=== PATIENT | female | born 1945 | race African-American/Black ===

== ENCOUNTER 2016-12-08 12:43 | Emergency (ER) | payer OTHER ==
[~2016-12-08] VITALS: Ht 162.6 cm; Wt 104.3 kg
[~2016-12-08 12:43] MED LIST: ALPRAZOLAM1 MG PO; ASPIRIN81 M1 PO; FLUOXETINE HCL40 M1 PO; LEVOTHYROXINE0.15 MG PO; LISINOPRIL10 MG PO; METOPROLOL SUCC25 M1 PO; NORVASC 5MG TAB5 MG PO; PANTOPRAZOLE SO40 M1 PO; PERPHENAZINE4 M1 PO; PREDNISONE20 M1 PO; PRILOSEC 20MG C20 MG PO; VISTARIL25 M1 PO; ZOCOR 40MG TAB40 MG PO
[2016-12-08 12:54] VITALS: BP 129/78
--- NOTE | 2016-12-08 13:06 | ED SKIN/ALLERGY COMPLAINT ---
History of Present Illness General Chief Complaint: Allergy Symptoms Stated Complaint: ALLERGIC REACTION? Source: patient, old records Exam Limitations: no limitations Vital Signs & Intake/Output Vital Signs & Intake/Output Vital Signs Date Time Temp Pulse Resp B/P B/P Pulse O2 O2 Flow FiO2 Mean Ox Delivery Rate 12/08 1254 95.9 53 22 129/78 96 Room Air Allergies Coded Allergies: lisinopril (Mild, ITCHING 03/15/16) Penicillins (SWELLING 12/05/15) zinc (UNKNOWN 12/05/15) Reconcile Medications Alprazolam 1 MG TAB 1 TAB PO TID PRN ANXIETY (Reported) Aspirin 81 MG CTB 1 TAB PO DAILY HEART HEALTH (Reported) Fluoxetine HCl 40 MG CAPSULE 1 CAP PO BID MENTAL HEALTH (Reported) Hydroxyzine Pamoate (Vistaril) 25 MG CAPSULE 1 CAP PO TID PRN ITCHING Levothyroxine Sodium 0.15 MG TAB 0.15 MG PO DAILY AC THYROID (Reported) Metoprolol Succinate 25 MG TAB.ER.24H 1 TAB PO DAILY HEART (Reported) Pantoprazole Sodium 40 MG TABLET.DR 1 TAB PO DAILY PRN GI (Reported) Perphenazine 4 MG TABLET 1 TAB PO DAILY PRN MENTAL HEALTH (Reported) Prednisone 10 MG TABLET 1 TAB PO DAILY ALLERGIC REACTION TAKE 4 TABS FOR 3 DAYS THEN TAKE 3 TABS FOR 3 DAYS THEN TAKE 2 TABS FOR 3 DAYS THEN TAKE 1 TAB FOR 3 DAYS Simvastatin (Zocor 40MG Tab) 40 MG TAB 1 TAB PO QPM CHOLESTEROL (Reported) Triage Note: C/O ITCHING ALL OVER WITH TINGLING, NUMBNESS TO LIPS, TONGUE SWELLING X 3 DAYS. WORSE TODAY. Triage Nurses Notes Reviewed? yes HPI: Patient presents with diffuse body itching since Tuesday. Patient also states that it feels like her tongue was swollen even though she knows that it's not. There is no difficulty breathing or swallowing. There are no fevers or chills. Patient denies any new medications, foods or detergents. Patient states that she had similar symptoms in the past when she was on lisinopril but she does not take any KRISTIAN inhibitor's. The symptoms have been constant since Tuesday. The patient states that they are not getting any worse but they're not getting any better either. Patient called her primary care physician and was instructed to come into the emergency department. Past History Travel History Traveled to [place] past 21 day No Medical History Any Pertinent Medical History? see below for history Neurological: TIA EENT: NONE Cardiovascular: CAD, hypertension, hyperlipidemia Respiratory: NONE Gastrointestinal: NONE Hepatic: NONE Renal: NONE Musculoskeletal: NONE Psychiatric: anxiety, depression Endocrine: hypothyroidism Blood Disorders: NONE Cancer(s): NONE MAINTENANCE MECHANIC ELEVATORS/Reproductive: NONE Surgical History Surgical History: non-contributory Psychosocial History Who do you live with Sister Services at Home None What is your primary language Brazilian Tobacco Use: Current Daily Use Daily Tobacco Use Amount/Type: => 5 Cigarettes daily ETOH Use: denies use Family History Family History, If Any: BROTHER Diabetes mellitus (DM) Hx Contributory? No Review of Systems Review of Systems Constitutional: Reports: no symptoms. EENTM: Reports: no symptoms. Respiratory: Reports: no symptoms. Cardiovascular: Reports: no symptoms. GI: Reports: no symptoms. Genitourinary: Reports: no symptoms. Musculoskeletal: Reports: no symptoms. Skin: Reports: see HPI. Neurological/Psychological: Reports: no symptoms. Hematologic/Endocrine: Reports: no symptoms. Immunologic/Allergic: Reports: no symptoms. All Other Systems: Reviewed and Negative Physical Exam Physical Exam General Appearance: well developed/nourished, mild distress Head: atraumatic Eyes: Bilateral: PERRL, EOMI. Ears, Nose, Throat: normal pharynx, normal ENT inspection, hearing grossly normal Neck: normal inspection, supple, NO STRIDOR Respiratory: normal breath sounds, no respiratory distress, lungs clear Cardiovascular: regular rate/rhythm, normal peripheral pulses Gastrointestinal: soft, non-tender Back: normal inspection Extremities: normal inspection, normal range of motion, no edema Neurologic/Psych: awake, alert, oriented x 3, normal mood/affect Skin: NO RASH, NO SIGNS OF BED BUGS OR SCABIES Lymphatic: no anterior cervical [place] Progress Differential Diagnosis: allergic reaction, anaphylaxis, contact dermatitis, drug reaction, erythema multiforme, piyriasis rosea Plan of Care: Current Medications Sig/Stephenie Start time Last Medication Dose Stop Time Status Admin Hydroxyzine HCl 25 MG ONCE ONE 12/08 1314 AC (Atarax) 12/09 1315 Prednisone 60 MG ONCE ONE 12/08 1314 AC 12/09 1315 Departure Departure Disposition: HOME OR SELF CARE Condition: Stable Clinical Impression Primary Impression: Allergic reaction Referrals: SHAYY CURRY MD (PCP/Family) Additional Instructions: RETURN FOR ANY CONCERNS Departure Forms: Customer Survey General Discharge Information Prescriptions: Current Visit Scripts Prednisone 1 TAB PO DAILY #30 TAB TAKE 4 TABS FOR 3 DAYS THEN TAKE 3 TABS FOR 3 DAYS THEN TAKE 2 TABS FOR 3 DAYS THEN TAKE 1 TAB FOR 3 DAYS Hydroxyzine Pamoate (Vistaril) 1 CAP PO TID PRN ITCHING #30 CAP
[2016-12-08] MEDS ORDERED: VISTARIL25 M1 PO (13:13)
[2016-12-08] MEDS ORDERED: PREDNISONE10 M2 PO (13:13)
== END 2016-12-08 14:03 ==
LOC: ERH 12:43
DX: T78.40XA Allergy, unspecified, initial encounter (principal)

== ENCOUNTER → 2018-02-24 | Day surgery (SDC) | payer OTHER ==
[~2018-02-24] VITALS: Ht 165.1 cm; Wt 104.8 kg
[~2018-02-24] MED LIST changes: +AMLODIPINE BESY10 M1 PO; +ASPIRIN EC81 M1 PO; -ASPIRIN81 M1 PO; +BUSPIRONE HCL10 M1 PO; +LEVOTHYROXINE150 MCG PO; +PREDNISONE10 M2 PO
--- NOTE | 2018-02-24 11:50 | ULTRASOUND CBW REPORT ---
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 Atypical ductal hyperplasia right breast 9:00, 5 cm from the nipple. Invasive ductal carcinoma right breast 12:00, 4 cm from the nipple. COMPARISON: Ultrasound guided biopsy and post procedure mammogram dated 01/17/2018 and other older mammograms. TECHNIQUE NEEDLE LOC: Proper informed consent is obtained from the patient after discussion of the procedure, potential risks and complications, and alternatives including declining the procedure today. Patient was given an opportunity for questions. The patient appeared to understand. The patient consented to the procedure and signed the consent form. Left breast ductal carcinoma in situ at 10:00 subareolar location: GUIDANCE: Ultrasound APPROACH: Lateral TARGET: Biopsy clip in the subareolar left breast 10:00 position. ANESTHESIA: 7 mL Xylocaine 2% LOCALIZATION MARKER: Kopans 5 cm needle localization system The skin was prepped and local anesthesia administered. The needle was positioned and position assessed with mammography. The wire was hooked into position. The patient tolerated the procedure well and had no immediate complication. Diagram was marked for the surgeon. The target is located around the distal thick thin junction of the wire, 5 cm deep to the skin with 9 cm of the wire remaining external to the skin. Right breast invasive ductal carcinoma at 12:00, 4 cm from the nipple: GUIDANCE: Ultrasound APPROACH: Lateral TARGET: Large solid hypoechoic mass with microlobulated margins, measuring approximately 3.4 x 2.3 x 2.8 cm. ANESTHESIA: 7 mL Xylocaine 2% LOCALIZATION MARKER: Kopans 5 cm needle localization system The skin was prepped and local anesthesia administered. The needle was positioned and position assessed with mammography. The wire was hooked into position. The patient tolerated the procedure well and had no immediate complication. Diagram was marked for the surgeon. The target is located around the thick segment of the wire, 2 cm deep to the skin with 8.5 cm of the wire remaining external to the skin. Right breast atypical ductal hyperplasia at 9:00, 5 cm from the nipple: GUIDANCE: Ultrasound APPROACH: Lateral TARGET: 0.4 x 0.4 x 0.5 cm irregularly marginated hypoechoic mass in the right breast 9:00, 5 cm from the nipple ANESTHESIA: 6 mL Xylocaine 2% LOCALIZATION MARKER: Kopans 5 cm needle localization system The skin was prepped and local anesthesia administered. The needle was positioned and position assessed with mammography. The wire was hooked into position. The patient tolerated the procedure well and had no immediate complication. Diagram was marked for the surgeon. The target is located around the proximal thick thin junction of the wire, 2 cm deep to the skin with 10.5 cm of the wire remaining external to the skin. IMPRESSION: Status post bilateral breast needle localization with wire hooked into position. The left breast DCIS at 10:00 subareolar location is located around the distal thick thin junction of the wire, 5 cm deep to the skin with 9 cm of the wire remaining external to the skin. The right breast invasive ductal carcinoma 12:00 is located around the thick segment of the wire, 2 cm deep to the skin with 8.5 cm of the wire remaining external to the skin. The right breast atypical ductal hyperplasia at 9:00 is located around the proximal thick thin junction of the wire, 2 cm deep to the skin with 10.5 cm of the wire remaining external to the skin.
--- NOTE | 2018-02-24 14:58 | Operative Report ---
Operative/Inv Procedure Report Surgery Date: 02/24/18 Name of Procedure: Left lumpectomy with wire localization, right lumpectomy with wire localization, right sentinel lymph node biopsy, right breast biopsy Pre-Operative Diagnosis: Bilateral breast cancer, right-sided atypical ductal hyperplasia Post-Operative Diagnosis: Same Estimated Blood Loss: 50ml to 100ml Surgeon/Snow Removal/Plowing: Trista Washington MD Anesthesia: laryngeal mask airway Specimens: Left lumpectomy, cranial margin, caudal margin, medial margin, lateral margin, deep margin right lumpectomy, cranial margin, caudal margin, medial margin, lateral margin, deep margin,right breast biopsy, caudal margin ,sentinel lymph node Operative/Procedure Note Note: Patient is a right breast mass which is biopsy-proven invasive breast cancer. She also was found to have a left breast DCIS. An additional biopsy of the right breast showed atypical ductal hyperplasia. She is brought to the operating for a left lumpectomy, right lumpectomy and sentinel lymph node biopsy , and right breast excisional biopsy. She was placed under anesthesia and given 2 g of Ancef. Bilateral breast were prepped and draped in sterile fashion ChloraPrep. 3 cc of methylene blue diluted with 2 cc of saline was injected in the retroareolar fashion. The left breast was approached first. Wire localization films were reviewed and incision was planned. Local anesthesia pack percent Marcaine was given and a curvilinear incision was made in the periareolar position. A lumpectomy was performed and specimen was removed and marked for incisions and regimen. Intraoperative x-ray confirmed the presence of the clip in the specimen. Additional margins were taken in the cranial, caudal, medial, lateral, Deep positions. The right breast was then approached. The axilla was approached first. A transverse incision was made in the lower axilla after local anesthesia. The axilla was explored. A hot, blue lymph node was identified and excised. This was marked as sentinel lymph node. No other hot, blue, or palpable lymph nodes were identified. Hemostasis was adequate. The cancer was then approached. After giving local anesthesia a periareolar incision was made. A generous lumpectomy was performed. The specimen contained the clip and obvious palpable mass. It was marked for orientation is enlargement. Additional margin was taken in the cranial, caudal, medial, lateral, and the positions. Particular attention was taken to the medial and deep positions with tumor was felt to be close to the margin. The dissection is started at the skin level. Clips were used to booker the margins of the lumpectomy bed and deep tissue was approximated using interrupted Vicryl sutures. The other wire was then approached. A separate incision was made in the 9 o'clock position and the tissue was dissected. Upon dissection some bleeding was encountered and was controlled with electrocautery. The wire was dislodged and the specimen was removed. All firm tissue consistent with biopsy changes was excised. The specimens were oriented and x-rayed and did not contain the clip. Additional tissue was taken caudally where there was some firm tissue remaining. This was marked with a suture in the true caudal margin. X-ray failed to show the clip. Due to the generous excision containing all firm tissue, no further tissue was removed. The clip may have been removed and the suction given the bleeding that was encountered. All skin incisions were closed using running Monocryl sutures. Steri-Strips and sterile dressings were applied and patient was transferred to the recovery room in satisfactory condition having tolerated procedure well.
--- NOTE | 2018-02-24 18:32 | MAMMOGRAPHY REPORT ---
EXAMINATION: MM NEEDLE LOCALIZATION SPECIMEN FROM THE BREAST, LEFT MM NEEDLE LOCALIZATION SPECIMEN FROM THE BREAST, RIGHT MM NEEDLE LOCALIZATION SPECIMEN FROM THE BREAST, RIGHT CLINICAL INDICATION: Specimen radiograph from the left and right breast lumpectomy. COMPARISON: Preoperative needle localization films from earlier today. TECHNIQUE: Single specimen radiographs of the specimen were obtained. FINDINGS: Left breast: The radiograph of the excised surgical specimen shows that the hookwire is delivered intact and the marker clip is identified in the specimen. Right breast 12:00 position: The radiograph of the excised surgical specimen shows that the hookwire is delivered intact and the marker clip is identified in the specimen. Right breast 9:00 position: The radiograph of the excised surgical specimen shows that the hookwire is not included in the [id number] of the radiograph. This was communicated to the surgeon at the time of the specimen radiograph and the successful excision of the hook wire was visually confirmed by the surgeon. Similarly, the marker clip is not identified in the specimen. This was also communicated to the surgeon at the time of the specimen radiograph. IMPRESSION: Satisfactory excision of the targeted lesions in the left breast and in the right breast 12:00. The excision at the right breast 9:00 position is radiographically equivocal as the marker clip is not identified in the specimen. Close correlation with the surgical procedure is recommended. These findings were communicated to the surgeon in the OR at the time of specimen radiography.
== END ==
LOC: STS 03:22 → CBW.IIU 08:30 → CBW.US 09:00
DX: C50.811 Malignant neoplasm of overlapping sites of right female breast (principal); D05.12 Intraductal carcinoma in situ of left breast; E03.9 Hypothyroidism, unspecified; K21.9 Gastro-esophageal reflux disease without esophagitis; I10 Essential (primary) hypertension
CPT/HCPCS: 76942; 77066; J0690; J1630; J2001; J2250; J2405; J3490; Q9968

== ENCOUNTER 2018-04-14 02:08 | Inpatient (IN) | payer OTHER ==
[~2018-04-14] VITALS: Ht 162.6 cm; Wt 100.0 kg
--- NOTE | 2018-04-14 11:06 | NUCLEAR MEDICINE REPORT ---
EXAMINATION: LYMPHOSCINTIGRAPHY CLINICAL INFORMATION: Left breast cancer. COMPARISON: None. TECHNIQUE: A total of 1.2 mCi technetium 99m filtered sulfur colloid was injected in 3 divided doses around the left areola by DAISY Carpenter at 9:15 AM on 04/14/2018. Images of the left breast and axilla in the anterior, TAJIK, and leftlateral projections were obtained with simultaneous visualization of the body silhouette using a cobalt flood source, with the patient positioned between the flood source and the gamma camera. FINDINGS: A sentinal node is visualized in the left axilla. A second echelon node is visualized in the left axilla. IMPRESSION: 1. [place] and second echelon nodes are demonstrated in the left axilla.
--- NOTE | 2018-04-14 11:44 | Patient Discharge Instructions ---
Discharge Instructions General Discharge Information You were seen/treated for: Bilateral breast CA You had these procedures: Bilateral mastectomy with bilateral sentinel node excision Watch for these problems: Fever over 101 Drainage from wounds Increased redness and swelling around wounds Increase in ELMA drain output Chest pain or shortness of breath Call Surgeon to remove: Other Do not soak the wound: Yes No bath, but you may shower: Yes Other wound care: Daily dry dressing change. Keep keep incisions clean and dry Special Instructions: Drain CAREdrains should be emptied as needed daily. Drain volume and appearance should be recorded and brought to follow-up appointment with Dr. Washington. Do not lift arms overhead. No driving while you are taking pain medication Diet Continue normal diet: Yes Activity Activity Self Limited: Yes Pounds, do NOT lift more than: 10 Other activity limits: Do not lift arms higher than shoulder height. Recommend wearing button-down shirts that open in the front. Acute Coronary Syndrome Inclusion Criteria At DC or during hospital stay patient has or had the following: ACS DIAGNOSIS No Discharge Core Measures Meds if any: Prescribed or Continued at Discharge Meds if any: NOT Prescribed or Continued at Discharge Congestive Heart Failure Inclusion Criteria At DC or during hospital stay patient has or had the following: CHF DIAGNOSIS No Discharge Core Measures Meds if any: Prescribed or Continued at Discharge Meds if any: NOT Prescribed or Continued at Discharge Cerebrovascular accident Inclusion Criteria At DC or during hospital stay patient has or had the following: CVA/TIA Diagnosis No Discharge Core Measures Meds if any: Prescribed or Continued at Discharge Meds if any: NOT Prescribed or Continued at Discharge Venous thromboembolism Inclusion Criteria VTE Diagnosis No VTE Type NONE VTE Confirmed by (Test) NONE Discharge Core Measures - Per Current guidelines, there needs to be overlap - treatment for the first 5 days of Warfarin therapy. - If discharged on Warfarin prior to 5 days of - overlap therapy, the patient will need to be - assessed for post discharge needs including - *Post discharge parental anticoagulation - *Warfarin and/or parental anticoagulation education - *Follow up date to check INR post discharge At least 5 days overlap therapy as Inpatient No Meds if any: Prescribed or Continued at Discharge Note: Overlap Therapy is Warfarin and Anticoagulant Meds if any: NOT Prescribed or Continued at Discharge
--- NOTE | 2018-04-14 11:46 | Admission Core Measures ---
Acute Coronary Syndrome (CM) ACS Core Measures Acute Coronary Syndrome Diagnosis No Congestive Heart Failure (NEW) CHF Core Measures Congestive Heart Failure Diagnosis No Cerebrovascular Accident CVA Core Measures CVA/TIA Diagnosis No Venous Thromboembolism VTE Core Sayra (View Protocol) VTE Risk Factors Surgery No Mechanical VTE Prophylaxis d/t N/A MechProphylax Ordered No VTE Pharm Prophylaxis d/t NA PharmProphylax ordered Problem List As ranked by this Provider includes Assessment & Plan 1. Bilateral breast cancer HOME MEDS Home Med List Amlodipine Besylate 10 MG TABLET 1 TAB PO DAILY BP (Reported) Aspirin (Ecotrin*) 81 MG TABLET.DR 1 TAB PO DAILY HEART/BLOOD (Reported) Buspirone HCl 10 MG TABLET 1 TAB PO TID UNKNOWN (Reported) Levothyroxine Sodium 150 MCG TABLET 1 TAB PO DAILY THYROID (Reported) Metoprolol Succinate 25 MG TAB.ER.24H 1 TAB PO DAILY HEART/BP (Reported) Perphenazine 4 MG TABLET 1 TAB PO DAILY UNKNOWN (Reported)
--- NOTE | 2018-04-14 11:48 | Surg Short-stay <48hrs Dis Sum ---
Visit Information Visit Dates Admission Date: 04/14/18 Discharge Date: 04/15/18 Surgical Short Stay DC Summary Admission Diagnosis: Bilateral breast CA Final Diagnosis: Same Procedure(s): Bilateral mastectomy with bilateral sentinel node excision Summary/Significant Findings: 72yo F with history of bilateral breast cancer, hypertension, hyperlipidemia, hypothyroidism, anxiety, depression, and history of a TIA now presents for bilateral mastectomy with sentinel node excisions. Patient tolerated the procedure well. Postoperatively her pain was well managed, she was tolerating a regular diet and voiding, she was able to ambulate and she was cleared for discharge to home with ELMA drains in place. Condition at Discharge: Good Discharge Disposition: home health services Discharge instructions provided to patient/family: Yes Post discharge follow-up plan: Patient is to follow-up with Dr. Washington in 7-10 days for drain removal and wound check. Patient is instructed to call sooner with any questions or concerns
--- NOTE | 2018-04-14 13:13 | Operative Report ---
Operative/Inv Procedure Report Surgery Date: 04/14/18 Name of Procedure: Bilateral mastectomy and left sentinel lymph node biopsy Pre-Operative Diagnosis: Bilateral breast cancer Post-Operative Diagnosis: Same Estimated Blood Loss: less than 50ml Surgeon/Plastic Extruding Machine Operator: Trista Washington MD Anesthesia: laryngeal mask airway Specimens: Right breast, suture miller medial, left breast, suture miller medial, sentinel lymph node 2 left Operative/Procedure Note Note: Patient is status post bilateral lumpectomies and right sentinel lymph node biopsy for a right-sided invasive breast cancer and a left-sided DCIS. Margins were positive bilaterally. She presents for bilateral mastectomy. Patient brought to the operating room and placed supine on the table. Anesthesia was administered and 3 g of Ancef were given. 3 cc of methylene blue diluted with 2 cc of saline was injected in the retroareolar fashion in the left breast. The chest were prepped and draped in a sterile fashion using ChloraPrep. Curvilinear incisions were made above and below the areola bilaterally to attempt symmetry. The right breast was approached first. Incisions were made and flaps were created superiorly to the level of the clavicle, medially to the sternum, inferiorly to the superior border of the rectus sheath, and laterally to the axilla. The breast was removed from the pectoralis fascia using cautery. A suture was placed in the medial breast for orientation. The left breast was approached in a similar fashion. Again flaps were created similarly to landmarks. Breast was removed and marked for orientation with a suture in the medial aspect. The axilla was then explored. There were 2 hot lymph nodes identified. There were no other hot, blue, or palpable lymph nodes in the axilla. Hemostasis maintained throughout the procedure. #10 ELMA drains were placed and brought out through the skin incisions inferior to the incisions. These were fastened to the skin using 2-0 nylon sutures. Deep dermis was closed using interrupted Vicryl sutures and the skin was closed using a running Biosyn subcuticular stitch. Steri-Strips and sterile dressings were applied and patient was transferred to the recovery room in satisfactory condition having tolerated the procedure well.
--- NOTE | 2018-04-14 15:40 | PN- General Surgery ---
Subjective Subjective: POC Pt recovering in PACU, no pain but complains of nausea and feels like the room is spinning. States that she did not have this reaction to anesthesia last time she had surgery. Tolerating ice-chips. Randi Cp/SOB/HELM Objective Vital Signs and I&Os Intake & Output 04/14 1600 04/14 0800 04/14 0000 04/13 1600 04/13 0800 04/13 0000 Intake Total Output Total Balance Patient 231 lb Weight VSS, afebrile Physical Exam: gen- NAD resp- clear cardiac-RRR chest- dressings are clean and dry, ELMA drains in place on suction both with 5- 10cc angelika drainage in bulb abd- obese, soft, NT Current Medications: Current Medications Sig/Stephenie Start time Last Medication Dose Route Stop Time Status Admin Acetaminophen 0 .STK-MED ONE 04/14 948 DC IV Amlodipine Besylate 10 MG DAILY 04/15 900 AC PO Aspirin Buffered 81 MG DAILY 04/15 900 AC PO Buspirone HCl 10 MG TID 04/14 1400 AC PO Fentanyl Citrate 0 .STK-MED ONE 04/14 948 DC .ROUTE Haloperidol 0 .STK-MED ONE 04/14 1321 DC .ROUTE Hydromorphone HCl 0 .STK-MED ONE 04/14 949 DC .ROUTE Levothyroxine Sodium 0.15 MG DAILY AC 04/15 07 AC PO Metoprolol Succinate 25 MG DAILY 04/15 09 AC PO Midazolam HCl 0 .STK-MED ONE 04/14 948 DC .ROUTE Ondansetron HCl 0 .STK-MED ONE 04/14 1307 DC .ROUTE Ondansetron HCl 0 .STK-MED ONE 04/14 949 DC .ROUTE Perphenazine 4 MG DAILY 04/15 09 AC PO Assessment/Plan Assessment/Plan 72yo F with bilateral breast CA now here SP bilateral mastectomy and sentinal node dissection POD0. stable recovering in PACU with only complaint of nausea. Anti-emetics as needed pain management- pt had block so should not require much pain medication initailly drain care FU am labs dvt ppx- hsq to start in AM and ALPs OOB advance diet as toelrated IVF overnight DC planning- likely home tomorrow, may need [facility] for drain care FU with Dr Washington in 10 days Core Measures Venous Thromboembolism VTE Risk Factors Surgery No Mechanical VTE Prophylaxis d/t N/A MechProphylax Ordered No VTE Pharm Prophylaxis d/t NA PharmProphylax ordered
[2018-04-14 16:00] VITALS: BP 102/70
[2018-04-14 20:06] VITALS: BP 146/80
[2018-04-15 00:13] VITALS: BP 144/71
[2018-04-15 04:00] VITALS: BP 147/84
[2018-04-15 07:18] VITALS: BP 143/81
--- NOTE | 2018-04-15 08:33 | Surgical Discharge Summary ---
Visit Information Visit Dates Admission Date: 04/14/18 Discharge Date: 04/15/18 History of Present Illness Chief Complaint: Bilateral breast cancer Medical History Blood Transfusion Hx: No Neurological: TIA EENT: NONE Cardiovascular: AFIB, CAD, hypertension, hyperlipidemia Respiratory: NONE Gastrointestinal: NONE Hepatic: NONE Renal: NONE Musculoskeletal: NONE Psychiatric: anxiety, depression Endocrine: hypothyroidism Blood Disorders: NONE Cancer(s): breast cancer CERTIFIED ORTHOTIC FITTER/Reproductive: NONE History of MRSA: No History of VRE: No History of CDIFF: No Isolation History: Standard Surgical History Pertinent Surgical History: non-contributory, hysterectomy, lumpectomy, masectomy Family History Relations & Conditions If Any: BROTHER Diabetes mellitus (DM) Psychosocial History Who Do You Live With? Sister Services at Home: None What is Your Primary Language? Guyanese Review of Systems: [facility] Hospital Course Course Attending Physician: Trista Washington MD Primary Care Physician: Maverick COKER,[facility] Course: Patient was admitted for bilateral mastectomy and left sentinel node biopsy on . She had significant post operative nausea and vomiting. Pain was controlled, ELMA sersanguinous with no evidence of hematoma on POD 1. Her nausea was resolved,however,she had not taken any po. Once she tolerated po, she can be discharged. Allergies: Coded Allergies: lisinopril (Mild, ITCHING 04/13/18) Penicillins (SWELLING 04/13/18) zinc (ITCHING 04/13/18) Disposition Summary Disposition Principal Diagnosis: Bilateral breast cancer Additional Diagnosis: HTN Discharge Disposition: home health services Discharge Instructions General Discharge Information Code Status: Full Code Patient's Diet: ad kaden Patient's Activity: ad kaden Follow-Up Instructions/Appts: 1 week, Dr. Washington
--- NOTE | 2018-04-15 08:35 | PN- General Surgery ---
Subjective Subjective: No pain and no nausea Objective Vital Signs and I&Os Vital Signs Date Time Temp Pulse Resp B/P B/P Pulse O2 O2 Flow FiO2 Mean Ox Delivery Rate 04/15 0718 98.1 89 20 143/81 96 Room Air 04/15 0400 98.6 94 20 147/84 98 Room Air 04/15 0013 98.3 92 18 144/71 94 Room Air 04/14 2006 97.6 88 20 146/80 97 Room Air 04/14 1824 96 Nasal 2.0L Cannula 04/14 1600 94.8 58 12 102/70 96 Nasal 2.0L Cannula Intake & Output 04/15 0800 04/15 0000 04/14 1600 04/14 0800 04/14 0000 Intake Total 600 300 Output Total 70 90 Balance 530 210 Intake, IV 600 300 Output, 70 90 Drainage Patient 221 lb Weight Weight Bed scale Measurement Method Physical Exam: ELMA sersanguinous with no evidence of hematoma, dressings CDI Assessment/Plan Assessment/Plan Pain is controlled, ELMA sersanguinous with no evidence of hematoma on POD 1. Her nausea was resolved,however,she had not taken any po. Once she tolerates po and pain is controlled, she can be discharged with VNA. Core Measures Venous Thromboembolism VTE Risk Factors Surgery No Mechanical VTE Prophylaxis d/t N/A MechProphylax Ordered No VTE Pharm Prophylaxis d/t NA PharmProphylax ordered
[2018-04-15] MEDS ORDERED: OXYCODONE HCL5 M1 PO (08:56)
[2018-04-15] MEDS ORDERED: TYLENOL EXTRA500 M2 PO (08:56)
[2018-04-15 09:43] LABS: ABSOLUTE BASOPHIL COUNT 0 /CUMM (0.0-0.2); ABSOLUTE EOSINOPHIL COUNT 0 /CUMM (0.0-0.7); ABSOLUTE GRANULOCYTE CT 17.4 /CUMM (1.4-6.5); ABSOLUTE LYMPH COUNT 2.3 /CUMM (1.2-3.4); ABSOLUTE MONOCYTE COUNT 0.7 /CUMM (0.10-0.60); BASOPHIL % 0.2 % (0.0-2.0); EOSINOPHIL % 0.1 % (0-5); GRANULOCYTE % 84.8 % (42.2-75.2); HEMATOCRIT 37.2 % (37-47); MEAN CORPUSCULAR HGB 27.5 PG (27.0-31.0); MEAN CORPUSCULAR HGB CONC 33.3 G/DL (33.0-37.0); MEAN CORPUSCULAR VOLUME 82.7 FL (81.0-99.0); MEAN PLATELET VOLUME 10.3 FL (7.4-10.4); RBC DISTRIBUTION WIDTH 14.9 % (11.5-14.5); RED BLOOD CELL CT 4.49 /CUMM (4.20-5.40)
[2018-04-15 10:04] LABS: WHITE BLOOD CELL COUNT 20.5 /CUMM (4.8-10.8)
[2018-04-15 10:05] LABS: PLATELET COUNT 221 /CUMM (130-400)
[2018-04-15 10:16] VITALS: BP 140/80
== END 2018-04-15 12:55 | disposition home health service (06) | DRG 581 ==
LOC: SDA 02:08 → STS 07:00 → EDSTATUS 07:00 → ENRESERV 13:34 → ENTRNSPT 15:34 → EDTRNSPT 15:44 → EDTRNSPTSTS 15:44 → 2NB 15:56 → CMPTRNSPT 16:05 → ENPENDDIS 04-15 10:05 → ENTRNSPT 04-15 12:27 → 2NB 04-15 12:55 → CMPTRNSPT 04-15 13:16
PROVIDERS: Physician Assistant Surgical
PROC: 0HTV0ZZ Resection of Bilateral Breast, Open Approach (ICD-10-PCS; principal; 2018-04-14)
PROC: 07B60ZX Excision of Left Axillary Lymphatic, Open Approach, Diagnostic (ICD-10-PCS; principal; 2018-04-14)
PROC: 3E0T3BZ Introduction of Anesthetic Agent into Peripheral Nerves and Plexi, Percutaneous Approach (ICD-10-PCS; 2018-04-14)
DX: C50.411 Malignant neoplasm of upper-outer quadrant of right female breast (principal); D05.12 Intraductal carcinoma in situ of left breast; R11.2 Nausea with vomiting, unspecified; I25.10 Atherosclerotic heart disease of native coronary artery without angina pectoris; I10 Essential (primary) hypertension; E78.5 Hyperlipidemia, unspecified; E03.9 Hypothyroidism, unspecified; F41.9 Anxiety disorder, unspecified; F32.9 Major depressive disorder, single episode, unspecified; H35.30 Unspecified macular degeneration; F17.200 Nicotine dependence, unspecified, uncomplicated; Z91.048 Other nonmedicinal substance allergy status; Z86.73 Personal history of transient ischemic attack (TIA), and cerebral infarction without residual deficits; Z88.0 Allergy status to penicillin; Z90.710 Acquired absence of both cervix and uterus
CPT/HCPCS: 2NBP; 36592; 82436; A9520; C9290; J0131; J0690; J1630; J1644; J2405; J2550; J7042; Q9968